=== PATIENT | female | born 1945 | race Caucasian/White ===

== ENCOUNTER → 2017-08-15 10:59 | Outpatient (CLI) | payer MEDICARE, OTHER | END | disposition home or self-care (01) | LOC: D.MRI 10:59 | DX: M50.30 Other cervical disc degeneration, unspecified cervical region (principal) ==

== ENCOUNTER 2017-10-02 15:47 | Emergency (ER) | payer MEDICARE, OTHER ==
[2017-10-02 17:31] LABS: APPEARANCE HAZY (CLEAR); BACTERIA MODERATE /hpf (NONE SEEN); BILIRUBIN NEGATIVE (NEGATIVE); COLOR YELLOW (YELLOW); EPITHELIAL CELLS 0-5 /hpf (0-5); GLUCOSE NEGATIVE (NEGATIVE); KETONE MODERATE mg/dL (NEGATIVE); NITRITE NEGATIVE (NEGATIVE); PROTEIN NEGATIVE (NEGATIVE); RED CELLS - URINE RARE /hpf (0-5); UROBILINOGEN NORMAL (NORMAL)
[2017-10-02 17:32] LABS: MUCUS <1+ /lpf (NONE SEEN)
== END 2017-10-02 18:52 | disposition home or self-care (01) ==
LOC: D.ER 15:47
PROVIDERS: Emergency Medicine
DX: N39.0 Urinary tract infection, site not specified (principal); E11.9 Type 2 diabetes mellitus without complications; I10 Essential (primary) hypertension

== ENCOUNTER → 2017-11-20 07:49 | Outpatient (CLI) | payer MEDICARE, OTHER | END | disposition home or self-care (01) | LOC: D.CT 07:49 | DX: R10.9 Unspecified abdominal pain (principal) ==

== ENCOUNTER 2018-08-20 08:48 | Day surgery (SDC) | payer MEDICARE, OTHER ==
[~2018-08-20] VITALS: Ht 160 cm; Wt 77.3 kg
--- NOTE | ~2018-08-20 | HP ---
PATIENT: TAM TRIMBLE MEDICAL RECORD: [id number] ACCOUNT: [id number] LOCATION:[facility] : 43 ADMISSION DATE: 08/20/18 PCP: RHIANNON VEGA MD HISTORY AND PHYSICAL EXAMINATION PREOPERATIVE HISTORY AND PHYSICAL HISTORY OF PRESENT ILLNESS: Tam is 72 years old. She has a right dominant thyroid nodule 3.4 cm in size. She is being admitted for right thyroid lobectomy, possible total. PAST MEDICAL HISTORY: Diabetes. PAST SURGICAL HISTORY: Includes a total hysterectomy; bilateral knee replacement; L4, L5, L6 fusion. CURRENT MEDICATIONS: Metformin, insulin, and aspirin. ALLERGIES: SHE HAS PROBLEMS WITH OPIATES. PHYSICAL EXAMINATION: GENERAL: She is alert and oriented. FACE: Normal and symmetric. EYES: Sclerae and conjunctivae are normal. EARS: Canals and TMs are normal. NOSE: No mass, polyps, or drainage. ORAL CAVITY AND OROPHARYNX: Tongue protrudes is midline. NECK: She has a right-sided thyroid nodule, it is over 3 cm in size and tender to palpation. No other masses. CHEST: Clear. CARDIOVASCULAR: Regular rate and rhythm, no murmur. EXTREMITIES: Normal. IMPRESSION: Right dominant thyroid nodule with some tenderness. PLAN: Right thyroid lobectomy, possible total. TRANSINT:[id number] Voice Confirmation ID: [id number] DOCUMENT ID: [id number] RHIANNON VEGA MD at 1229 CC: [id number] DICTATION DATE: 08/17/18 1030 CLEANING TECHNICIAN: 08/17/18 1101 [facility] [address] [place] [address]
--- NOTE | ~2018-08-20 | OP ---
PATIENT NAME: TAM TRIMBLE MEDICAL RECORD: [id number] :43 LOCATION:[id number] ADMISSION DATE: SURGEON: RHIANNON VEGA MD DATE OF OPERATION: 08/20/2018 PREOPERATIVE DIAGNOSIS: Right thyroid nodule. POSTOPERATIVE DIAGNOSIS: Right thyroid nodule. PROCEDURE: Right thyroid lobectomy. SURGEON: Rhiannon Vega MD ANESTHESIA: General orotracheal. BLOOD LOSS: Less than 10 cc. SPECIMENS: Right thyroid lobe. Frozen section diagnosis is benign thyroid nodule. COMPLICATIONS: None. DRAINS: A single drain through a separate stab incision inferior to the wound. DISPOSITION: Recovery, stable. DESCRIPTION OF PROCEDURE: She was brought to the operating room, placed in the supine position, sedated and intubated by anesthesia. The eyes were taped. She was positioned, prepped, and draped in the usual sterile fashion. The neck was examined. She had right thyroid nodule that was obviously palpable. She had ACDF scar, but it was just too high to incorporate into the thyroidectomy scar. The skin was injected with less than 1 cc of 1% lidocaine with 1:100,000 epinephrine. A horizontal incision was made with a #15 blade. This was taken down through the platysma layer. Flaps were elevated inferiorly and superiorly. Four separate 2-0 silk stick ties were used for retraction sutures. The fascia and strap muscles were divided in the midline, exposing the thyroid. When the thyroid was exposed, it was dissected off on the left side, normal to palpation; the right side had the obvious nodule. The strap muscles were bluntly dissected off of the thyroid. The thyroid dissection started inferiorly with tonsil clamp and bipolar, dividing some of the small fascia. Nodule was posteriorly towards the lower end of the thyroid. The inferior parathyroid and recurrent laryngeal nerve were identified. There was a nodular portion of the thyroid nodule. It was embedded between the recurrent laryngeal nerve and the trachea rather tethered to the esophagus. 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 On trying to pull it out bluntly, the mass would tear easily. It was gently dissected out with a tonsil, and once that came out, it was easy to follow the thyroid up, preserving the recurrent laryngeal nerve. A portion of that yellowish portion of the nodule was sent for path that returned benign thyroid tissue. The superior pedicle was then taken down. It was dissected up superiorly. Combination of bipolar and small clips were used to take down the superior pedicle. Once that was taken down, the thyroid was rotated medially. Almaraz's ligament was taken down carefully with Rakan and bipolar and then the thyroid isthmus was divided with cautery. The rest of the specimen was sent for path. The wound was irrigated and carefully inspected. There was a little bit of oozing around the Almaraz's ligament area, OPERATIVE REPORT [id number] NAIALEXTAM L so Surgicel was placed on that. A drain was placed through a separate stab incision inferior to the wound. The wound was closed with interrupted 3-0 Vicryl, loosely approximating the straps with couple of interrupted sutures; then the 4-0 Vicryl was used to close the platysma layer; and the skin was closed with running subcuticular 5-0 Prolene. Steri-Strips and Mastisol were applied. She was awakened, extubated, and transported to recovery in good condition. No complications. TRANSINT:[id number] Voice Confirmation ID: [id number] DOCUMENT ID: [id number] RHIANNON VEGA MD at 1144 CC: [id number] DICTATION DATE: 08/20/18 1612 BAT BOY/GIRL: 08/20/18 1838 [facility] [address] [place] [address]
[2018-08-20 09:30] LABS: HEMATOCRIT 39.5 % (36.0-48.0); HEMOGLOBIN 13.3 g/dL (12-16); MCH 29.8 pg (26.0-34.0); MCHC 33.7 g/dL (31.0-37.0); MCV 88.4 fL (80.0-100.0); MEAN PLATELET VOLUME 10.7 fL (7.4-10.4); RBC 4.47 10x6/uL (4.00-5.40); RDW 12.4 % (11.5-14.5); WBC 7.7 10x3/uL (4.8-10.8)
[2018-08-20 09:36] LABS: CALC OSMOLALITY 279 mosm/kg (275-300); CALCIUM 9.8 mg/dL (8.5-10.1); CARBON DIOXIDE 26.7 mmol/L (21.0-32.0); CHLORIDE - SERUM 105 mmol/L (98-107); CREATININE - SERUM 0.7 mg/dL (0.6-1.3); POTASSIUM - SERUM 3.8 mmol/L (3.5-5.1); SODIUM 140 mmol/L (136-145); UREA NITROGEN 11 mg/dL (7-18); eGFR NON AFRICAN AMERICAN 87 mL/min (90-120)
[2018-08-20 09:37] LABS: GLUCOSE 142 mg/dL (74-106)
[2018-08-20] MEDS ORDERED: PEPCID40 MG PO (09:43)
[2018-08-20] MEDS ORDERED: CYMBALTA20 MG PO (09:44)
[2018-08-20] MEDS ORDERED: BASAGLAR K100 UNIT/1 SC (09:45)
[2018-08-20] MEDS ORDERED: PRED-FORTE 1% OP5 ML RIGHT EYE (09:46)
[2018-08-20] MEDS ORDERED: OCUFLOX 0.3 % OP5 ML RIGHT EYE (09:47)
[2018-08-20] MEDS ORDERED: VOLTAREN100 GM TOPICAL (09:48)
[2018-08-20] MEDS ORDERED: GLUCOPHAGE1000 MG PO (09:49)
[2018-08-20] MEDS ORDERED: ASPIRIN81 MG PO (09:50)
[2018-08-20 10:25] VITALS: BP 124/66; BMI 30.1
[2018-08-20 16:56] VITALS: BP 153/46
[2018-08-20 17:04] VITALS: BP 153/46; Ht 160 cm; Wt 77.3 kg
[2018-08-20 20:00] VITALS: BP 155/65
[2018-08-21 05:00] VITALS: BP 146/58
[2018-08-21 07:43] VITALS: BP 138/59
[2018-08-21 10:27] VITALS: BP 128/62
[2018-08-21] MEDS ORDERED: ULTRAM50 MG (13:46)
[2018-08-21] MEDS ORDERED: ULTRAM50 MG PO ×2 (13:59→14:00)
[2018-08-21 16:07] VITALS: BP 126/52
== END 2018-08-21 14:26 | disposition home or self-care (01) ==
LOC: D.OPS 08:48 → D.PAN 11:00 → D.OPS 11:00 → D.PAN 11:05 → D.OPS 11:30 → D.MS 16:43 → D.OPS 08-21 14:26
PROVIDERS: Anesthesiology
DX: E04.1 Nontoxic single thyroid nodule (principal); Z98.1 Arthrodesis status; D34 Benign neoplasm of thyroid gland; E11.9 Type 2 diabetes mellitus without complications; Z96.653 Presence of artificial knee joint, bilateral; Z79.84 Long term (current) use of oral hypoglycemic drugs; Z79.4 Long term (current) use of insulin; Z79.82 Long term (current) use of aspirin; Z79.899 Other long term (current) drug therapy; Z88.5 Allergy status to narcotic agent; Z01.812 Encounter for preprocedural laboratory examination

== ENCOUNTER 2019-01-30 12:39 | Emergency (ER) | payer MEDICARE, OTHER ==
[~2019-01-30] VITALS: Ht 160 cm; Wt 77.3 kg
[~2019-01-30 12:39] MED LIST: ASPIRIN81 MG PO; BASAGLAR K100 UNIT/1 SC; CYMBALTA20 MG PO; GLUCOPHAGE1000 MG PO; OCUFLOX 0.3 % OP5 ML RIGHT EYE; PEPCID40 MG PO; PRED-FORTE 1% OP5 ML RIGHT EYE; ULTRAM50 MG; ULTRAM50 MG PO; VOLTAREN100 GM TOPICAL
[2019-01-30 12:44] VITALS: Ht 160 cm; Wt 77.3 kg
[2019-01-30 13:35] LABS: BASOPHILS 0.7 % (0-2); EOSINOPHILS 2.9 % (0-7); HEMATOCRIT 37.6 % (36.0-48.0); HEMOGLOBIN 12.8 g/dL (12-16); IMMATURE GRANULOCYTES 0.3 % (0-5); LYMPHOCYTES 22.1 % (15-50); MCH 30.3 pg (26.0-34.0); MCV 88.9 fL (80.0-100.0); MEAN PLATELET VOLUME 10.6 fL (7.4-10.4); PLATELET COUNT 268 10x3/uL (130-400); RBC 4.23 10x6/uL (4.00-5.40); RDW 12.7 % (11.5-14.5); WBC 6.9 10x3/uL (4.8-10.8)
[2019-01-30 13:41] LABS: APTT 28.7 SECONDS (22.8-39.4); INR 1.03 (0.85-1.17)
[2019-01-30 13:42] LABS: ALBUMIN 3.6 g/dL (3.4-5.0); ALKALINE PHOSPHATASE 80 U/L (46-116); ALT (SGPT) 25 U/L (10-68); BILIRUBIN - TOTAL 0.55 mg/dL (0.2-1.3); CALC OSMOLALITY 284 mosm/kg (275-300); CALCIUM 9.7 mg/dL (8.5-10.1); CARBON DIOXIDE 29.9 mmol/L (21.0-32.0); CHLORIDE - SERUM 105 mmol/L (98-107); CREATININE - SERUM 0.8 mg/dL (0.6-1.3); POTASSIUM - SERUM 3.8 mmol/L (3.5-5.1); PROTEIN - SERUM 6.8 g/dL (6.4-8.2); SODIUM 139 mmol/L (136-145); UREA NITROGEN 14 mg/dL (7-18); eGFR NON AFRICAN AMERICAN 74 mL/min (90-120)
[2019-01-30 13:44] LABS: GLUCOSE 208 mg/dL (74-106)
[2019-01-30 13:54] LABS: CKMB 1.1 U/L (0.0-3.6); CREATINE KINASE 47 UL (21-215); MAGNESIUM - SERUM 1.7 mg/dL (1.8-2.4); TROPONIN-I < 0.017 ng/mL (0.000-0.060)
[2019-01-30 15:41] VITALS: BP 187/80
== END 2019-01-30 15:58 | disposition home or self-care (01) ==
LOC: D.ER 12:39
PROVIDERS: Family Medicine
DX: R55 Syncope and collapse (principal); K21.9 Gastro-esophageal reflux disease without esophagitis

== ENCOUNTER → 2019-02-27 08:11 | Outpatient (CLI) | payer MEDICARE, OTHER ==
[2019-01-30 12:44] VITALS: BMI 30.1
== END | disposition home or self-care (01) ==
LOC: D.CT 08:11
PROVIDERS: ATTEND Nurse Practitioner Family
DX: I65.23 Occlusion and stenosis of bilateral carotid arteries (principal)